=== PATIENT | female | born 1955 | race Caucasian/White ===

== ENCOUNTER 2017-04-09 17:52 | Emergency (ER) | payer SELFPAY ==
[2017-04-09 19:14] LABS: CALCIUM 8.4 mg/dL (8.5-10.1); CARBON DIOXIDE 23.5 mmol/L (21-32); CHLORIDE SERUM 96 mmol/L (98-107); CREATININE SERUM 0.8 mg/dL (0.6-1.0); GFR1 > 60 mL/min; GLUCOSE SERUM 238 mg/dL (74-106); POTASSIUM SERUM 3.3 mmol/L (3.5-5.1); SODIUM SERUM 132 mmol/L (136-145)
[2017-04-09 19:17] LABS: BASOPHIL % 0.2 % (0-2); PLATELET COUNT 242 x10^3mcL (130-400); RED CELL DISTRIBUTION WIDTH 12.6 % (11.5-14.5)
[2017-04-09 19:19] LABS: ALKALINE PHOSPHATASE 110 U/L (46-116); ALT/SGPT 28 U/L (14-59); AST/SGOT 27 U/L (15-37); BILIRUBIN TOTAL 0.47 mg/dL (0.20-1.00); TOTAL PROTEIN, SERUM 7.6 g/dL (6.4-8.2)
[2017-04-09 19:27] LABS: ALBUMIN 3.2 g/dL (3.4-5.0)
[2017-04-09 22:09] LABS: UA SPECIFIC GRAVITY <=1.005 (1.005-1.035); microscopic required? YES; urine erythrocyte NEGATIVE (NEGATIVE)
[2017-04-09 22:15] LABS: T3 TOTAL 1.15 ng/mL
[2017-04-09 22:16] LABS: CHOLESTEROL/HDL RATIO 3.1; MAGNESIUM 1.7 mg/dL (1.8-2.4); PHOSPHOROUS 2.2 mg/dL (2.5-4.9)
[2017-04-09 22:17] LABS: FREE T4 1.36 ng/dL (0.76-1.46); T4(THYROXINE) 9.4 ug/dL (4.7-13.3)
[2017-04-09 22:56] LABS: AMPHETAMINE QUAL UR NONE DETECTED (NEG <=1000)
[2017-04-10 05:12] LABS: PLATELET COUNT 228 x10^3mcL (130-400); RED CELL DISTRIBUTION WIDTH 12.4 % (11.5-14.5)
[2017-04-10 05:15] LABS: BASOPHIL % 0 % (0-2)
[2017-04-10 05:23] LABS: CALCIUM 8.1 mg/dL (8.5-10.1); CARBON DIOXIDE 24.8 mmol/L (21-32); CHLORIDE SERUM 103 mmol/L (98-107); CREATININE SERUM 0.7 mg/dL (0.6-1.0); GFR1 > 60 mL/min; GLUCOSE SERUM 333 mg/dL (74-106); MAGNESIUM 1.7 mg/dL (1.8-2.4); PHOSPHOROUS 2.7 mg/dL (2.5-4.9); POTASSIUM SERUM 3.7 mmol/L (3.5-5.1); SODIUM SERUM 139 mmol/L (136-145)
[2017-04-10 07:33] VITALS: BP 110/48
[2017-04-10 12:51] VITALS: BP 102/52
== END 2017-04-10 12:51 | disposition home or self-care (01) ==
LOC: ED 17:52
PROVIDERS: Emergency Medicine; Family Medicine
DX: J44.1 Chronic obstructive pulmonary disease with (acute) exacerbation (principal)
CPT/HCPCS: 36600; 83880; 84439; 94150; J1100; J1815; J2405; J2930; J3480; J7030; J7040; J7613; J7620; J7644